=== PATIENT | female | born 2005 | race African-American/Black ===

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

== ENCOUNTER 2024-03-15 17:52 | Emergency (ER) | payer MEDICAID, OTHER ==
[~2024-03-15] VITALS: Ht 172.7 cm; Wt 87.5 kg
[2024-03-15 17:53] VITALS: O2SAT 98
[2024-03-15 18:11] VITALS: TEMP 36.66960
[2024-03-15 18:31] LABS: CHLORIDE 109 mEq/L (98-107); POTASSIUM 3.7 mEq/L (3.5-5.1); SODIUM 140 mEq/L (136-145)
[2024-03-15 18:32] LABS: CALCIUM 9.2 mg/dL (8.7-10.4); CARBON DIOXIDE 23 mEq/L (21-32)
[2024-03-15] MEDS: SODIUM CHLORIDE 0.9% (SEPSIS BOLUS) IV ONE (18:35)
[2024-03-15 18:37] LABS: CREATININE 0.7 mg/dL (0.6-1.0); GLUCOSE 102 mg/dL (70-105); UREA NITROGEN BLOOD 12 mg/dL (9-23)
[2024-03-15 18:43] LABS: INR 0.9; PROTHROMBIN TIME 9.8 sec (9.6-11.0)
[2024-03-15 18:58] LABS: CLARITY URINE CLEAR (CLEAR); COLOR URINE YELLOW (YELLOW); GLUCOSE URINE NEGATIVE (NEGATIVE); KETONES URINE NEGATIVE (NEGATIVE); LEUKOCYTE ESTERASE URINE 1+ (NEGATIVE); NITRITE URINE NEGATIVE (NEGATIVE); OCCULT BLOOD URINE NEGATIVE (NEGATIVE); PH URINE 6.5 (4.5-8.0); PROTEIN URINE NEGATIVE (NEGATIVE); SPECIFIC GRAVITY URINE 1.026 (1.005-1.030); UROBILINOGEN URINE 0.2 E.U./dL (0.2-1.0)
[2024-03-15 19:17] LABS: RBC URINE 0-2 /hpf (0-2); SQUAMOUS EPITHELIAL CELL URINE 1+ /lpf (RARE/1+)
[2024-03-15 19:18] LABS: BACTERIA URINE 2+
[2024-03-15 19:39] LABS: BASOPHILS % 0.2 % (0.0-2.0); EOSINOPHILS % 1.7 % (0.0-5.0); HEMATOCRIT. 32.8 % (36.0-48.0); HEMOGLOBIN. 10.8 g/dL (12.0-16.0); LYMPHOCYTES % 18.7 % (20.0-50.0); MEAN CORPUSCULAR HEMOGLOBIN 31.1 pg (28.0-32.0); MEAN CORPUSCULAR HGB CONC 33.1 g/dL (31.0-37.0); MEAN CORPUSCULAR VOLUME 93.9 fL (81.0-99.0); MEAN PLATELET VOLUME 10.1 fl (7.4-10.4); MONOCYTES % 7.3 % (2.0-8.0); NEUTROPHILS % 72.1 % (40.0-76.0); PLATELET 172 x1000/uL (130-400); RED BLOOD CELL COUNT 3.49 mill/uL (4.2-5.4); RED CELL DISTRIBUTION WIDTH 13.9 % (11.6-14.6); WHITE BLOOD COUNT 10.4 x1000/uL (4.5-11.0)
[2024-03-15] MEDS ORDERED: AMOX1TAB16 MT (20:43)
[2024-03-15 20:50] VITALS: BP 123/70; PULSE 84; RESP 16; O2SAT 97
[2024-03-17 19:11] LABS: CHLAMYDIA TRACHOMATIS NAA Negative (Negative); NEISSERIA GONORRHOEAE NAA Negative (Negative)
== END 2024-03-15 21:02 | disposition home or self-care (01) ==
LOC: ER 17:52
DX: O26.893 Other specified pregnancy related conditions, third trimester (principal); O09.33 Supervision of pregnancy with insufficient antenatal care, third trimester; Z3A.26 26 weeks gestation of pregnancy
CPT/HCPCS: 99285; 96360; 76805; 86592; 87491; 87591; 80048; 81003; 85025; 85610; 87086; 87210; 36415; 86705; J7030

== ENCOUNTER 2024-12-13 11:24 | Emergency (ER) | payer OTHER ==
[~2024-12-13] VITALS: Ht 172.7 cm; Wt 86.0 kg
[~2024-12-13 11:24] MED LIST: AMOX1TAB16 MT
[2024-12-13 11:36] VITALS: O2SAT 99
[2024-12-13 12:12] LABS: CLARITY URINE Clear (CLEAR); COLOR URINE YELLOW (YELLOW); LEUKOCYTE ESTERASE URINE 3+ (NEGATIVE); NITRITE URINE NEGATIVE (NEGATIVE); OCCULT BLOOD URINE Trace-intact (NEGATIVE)
[2024-12-13 12:51] LABS: CLARITY URINE CLOUDY (CLEAR); COLOR URINE YELLOW (YELLOW); GLUCOSE URINE NEGATIVE (NEGATIVE); KETONES URINE NEGATIVE (NEGATIVE); LEUKOCYTE ESTERASE URINE 3+ (NEGATIVE); NITRITE URINE NEGATIVE (NEGATIVE); OCCULT BLOOD URINE NEGATIVE (NEGATIVE); PH URINE 7.0 (4.5-8.0); PROTEIN URINE TRACE (NEGATIVE); SPECIFIC GRAVITY URINE 1.026 (1.005-1.030); UROBILINOGEN URINE 1.0 E.U./dL (0.2-1.0)
[2024-12-13 13:05] LABS: BACTERIA URINE 4+; SQUAMOUS EPITHELIAL CELL URINE 3+ /lpf (RARE/1+); WBC URINE 50-100 /hpf (0-2); YEAST URINE NONE SEEN
[2024-12-13] MEDS ORDERED: CEPH500C2 MT (13:28)
[2024-12-13] MEDS ORDERED: DOXY100C5 MT (13:28)
[2024-12-13] MEDS: DOXYCYCLINE HYCLATE 100MG CAPSULE PO ONE (13:47)
[2024-12-13] MEDS: FLUCONAZOLE 150MG TABLET PO ONE (13:47)
[2024-12-13] MEDS: CEFTRIAXONE SODIUM 500MG VIAL IM ONE (13:47)
[2024-12-13 13:55] VITALS: BP 108/72; PULSE 90; RESP 18; TEMP 37.1; O2SAT 99
[2024-12-15 17:07] LABS: CHLAMYDIA TRACHOMATIS NAA Negative (Negative); NEISSERIA GONORRHOEAE NAA Negative (Negative)
== END 2024-12-13 14:06 | disposition home or self-care (01) ==
LOC: ER 11:24
DX: Z11.3 Encounter for screening for infections with a predominantly sexual mode of transmission (principal); N39.0 Urinary tract infection, site not specified
CPT/HCPCS: 99283; 87491; 87591; 81003; 81025; 87086; 87210; 96372; J0696

== ENCOUNTER 2025-02-14 23:25 | Emergency (ER) | payer OTHER ==
[~2025-02-14] VITALS: Ht 172.7 cm; Wt 84.0 kg
[~2025-02-14 23:25] MED LIST changes: +CEPH500C2 MT; +DOXY100C5 MT
[2025-02-14 23:42] VITALS: TEMP 36.7; O2SAT 99
[2025-02-15] MEDS ORDERED: LIDOCAINE HCL 1% 20ML VIAL INFIL ONE (00:15)
[2025-02-15] MEDS ORDERED: FLUC150T46 MT (00:21)
[2025-02-15] MEDS ORDERED: METR-167 MT (00:21)
[2025-02-15] MEDS ORDERED: DOXY100C5 MT (00:21)
[2025-02-15 00:33] LABS: CLARITY URINE CLOUDY (CLEAR); COLOR URINE YELLOW (YELLOW); GLUCOSE URINE NEGATIVE (NEGATIVE); KETONES URINE NEGATIVE (NEGATIVE); LEUKOCYTE ESTERASE URINE 3+ (NEGATIVE); NITRITE URINE NEGATIVE (NEGATIVE); OCCULT BLOOD URINE NEGATIVE (NEGATIVE); PH URINE 6.0 (4.5-8.0); PROTEIN URINE NEGATIVE (NEGATIVE); SPECIFIC GRAVITY URINE 1.028 (1.005-1.030); UROBILINOGEN URINE 0.2 E.U./dL (0.2-1.0)
[2025-02-15] MEDS: CEFTRIAXONE SODIUM 500MG VIAL IM ONE (00:36)
[2025-02-15] MEDS: KETOROLAC 30MG/ML VIAL IM ONE (00:36)
[2025-02-15] MEDS: DOXYCYCLINE HYCLATE 100MG CAPSULE PO ONE (00:36)
[2025-02-15] MEDS: METRONIDAZOLE 500MG TABLET PO ONE (00:37)
[2025-02-15 00:45] VITALS: BP 128/89; PULSE 75; RESP 18; O2SAT 98
[2025-02-15 01:57] LABS: WBC URINE 50-100 /hpf (0-2)
[2025-02-15 01:58] LABS: BACTERIA URINE 1+; RBC URINE 0-2 /hpf (0-2); SQUAMOUS EPITHELIAL CELL URINE 2+ /lpf (RARE/1+)
[2025-02-17 07:10] LABS: CHLAMYDIA TRACHOMATIS NAA Negative (Negative); NEISSERIA GONORRHOEAE NAA Negative (Negative)
== END 2025-02-15 00:52 | disposition home or self-care (01) ==
LOC: ER 23:25
DX: N76.0 Acute vaginitis (principal)
CPT/HCPCS: 99284; 81003; 81025; 87086; 87491; 87591; 87210; 96372; J1885; J0696; J2003